=== PATIENT | female | born 1995 | race Two or more races ===

== ENCOUNTER 2022-10-25 21:53 | Inpatient (IN) | payer OTHER ==
[~2022-10-25] VITALS: Ht 139.7 cm; Wt 58.5 kg
[2022-10-25] MEDS ORDERED: PRENATAL TABLE1 EAC1 (21:59)
[2022-10-30] MEDS ORDERED: IBU800 MG PO (11:45)
[2022-10-30] MEDS ORDERED: SURFAK240 M1 PO (11:45)
== END 2022-10-30 13:14 | disposition home or self-care (01) | DRG 786 ==
LOC: EDBD 21:53 → OBS/DEL 21:53 → LDR 10-26 16:29 → O/R 10-27 19:51 → OB/GYN 10-27 21:15
PROVIDERS: Student in an Organized Health Care Education/Training Program; ADMIT Specialist; ATTEND Specialist
PROC: 4A1HXCZ Monitoring of Products of Conception, Cardiac Rate, External Approach (ICD-10-PCS; 2022-10-26)
PROC: 10D00Z1 Extraction of Products of Conception, Low, Open Approach (ICD-10-PCS; principal; 2022-10-27 18:45)
DX: O34.211 Maternal care for low transverse scar from previous cesarean delivery (principal); O60.23X0 Term delivery with preterm labor, third trimester, not applicable or unspecified; Z3A.36 36 weeks gestation of pregnancy; Z37.0 Single live birth; Z20.822 Contact with and (suspected) exposure to COVID-19

== ENCOUNTER 2022-10-31 17:15 | Emergency (ER) | payer OTHER ==
[~2022-10-31] VITALS: Ht 149.9 cm; Wt 59.0 kg
[~2022-10-31 17:15] MED LIST: IBU800 MG PO; PRENATAL TABLE1 EAC1; SURFAK240 M1 PO
== END 2022-10-31 20:13 | disposition home or self-care (01) ==
LOC: ER 17:15
PROVIDERS: General Practice
DX: O90.89 Other complications of the puerperium, not elsewhere classified (principal); R21 Rash and other nonspecific skin eruption